=== PATIENT | male | born 1960 | race Caucasian/White ===

== ENCOUNTER → 2016-10-22 | Outpatient (CLI) | payer OTHER ==
[~2016-10-22] MED LIST: ASA325 MG PO; METFORMIN HCL1000 M1 PO; MIRALAX PACKET17 GM PO; OXY IR DPS5 MG PO; PRAVACHOL40 MG PO; SENOKOT S1 TAB PO; TYLENOL325 MG PO; ULTRAM DPS50 MG PO; VASOTEC DPS5 MG PO
== END | disposition home or self-care (01) ==
LOC: PTH.S 07:55
DX: Z01.812 Encounter for preprocedural laboratory examination (principal); Z79.2 Long term (current) use of antibiotics

== ENCOUNTER 2016-11-03 05:25 | Inpatient (IN) | payer OTHER ==
[~2016-11-03] VITALS: Ht 165.1 cm; Wt 96.4 kg
--- NOTE | 2016-11-04 16:20 | OR ---
ADMIT: 11/03/2016 RM/LOC: [address] [facility] MR#: [id number] 26[address] [facility] [address] [place], [place] [address] SRINIVASAN FELIZ [address] [place] [address] Operative/Delivery Room Report SEX: M AGE: 56 : 1960 SURGERY DATE: 11/03/2016 SURGEON: Hank Rubio MD TRANSPORTATION DISPATCHER: Keaton Garcia PA-C PREOPERATIVE DIAGNOSIS: Left hip degenerative joint disease. POSTOPERATIVE DIAGNOSIS: Left hip degenerative joint disease. PROCEDURES: 1. Left anterior total hip arthroplasty. 2. Intra-articular Exparel block. ANESTHESIA: Spinal. COMPLICATIONS: None. ESTIMATED BLOOD LOSS: 250 mL. COMPONENTS: 1. A 52 mm Gription pinnacle cup. 2. A hole eliminator. 3. A neutral 36 mm AltrX liner. 4. A 12 mm standard offset Corail stem. 5. A +5 x 36 mm ceramic head. DESCRIPTION OF PROCEDURE: The patient was taken to the operating room. The correct hip was identified and marked in the preop holding area. The preoperative leg lengths were documented. The patient received a spinal anesthetic. At that point, the patient had traction boots applied. The patient was placed on the [facility] operative table. A perfect fluoroscopic AP pelvis was obtained along with a perfect AP of the operative hip and printed for preoperative templating purposes. At that point, the left hip was prepped and draped in a standard fashion and an anterior approach was performed. An incision was made lateral and inferior to the anterior superior iliac spine extending distally. Dissection was carried through subcutaneous tissue down to the tensor fascia. The fibers of the tensor fascia were identified in oblique fashion. The tensor fascia was then opened up along its muscle fibers. An Allis clamp was placed on the anterior fascial border. The tensor muscle itself was then swept off with blunt dissection and retracted posteriorly. At that point, the rectus was elevated off the anterior hip capsule. The lateral circumflex vessels were identified and cauterized. A Cobra retractor was placed above the superior femoral neck to retract the tensor posteriorly. The rest of the rectus was elevated off the anterior hip capsule and a second retractor was placed around the medial femoral neck. An L-shaped capsulotomy was performed through the hip capsule down to the intertrochanteric line and extended along the intertrochanteric line to the level of the lesser trochanter. Tag stitches were placed in the medial and lateral border of the ADMIT: 11/03/2016 RM/LOC: 525 [facility] MR#: [id number] [address] [address] SRINIVASAN FELIZ [address] [place] [address] Operative/Delivery Room Report SEX: M AGE: 56 : 1960 hip capsule. We also released the superior hip capsule out of the trochanteric shoulder region. At that point, we placed our Cobra retractors in an intra- articular fashion for improved exposure to complete our capsular releases intra-articularly. A femoral neck cut was then made based on templating using the trochanteric shoulder as a bony landmark. We then externally rotated the hip 20 degrees for improved exposure and removed the femoral head from the acetabulum with no undue difficulty. Once the femoral head was removed, we again completed our capsular release around the inferior femoral neck to the level of lesser trochanter, released the superior capsule off the greater trochanteric shoulder in its entirety. We then placed slight traction on the femur in 20 degrees external rotation and placed a blunt-tip Cobra retractor over the anterior acetabular border. A second blunt Cobra was placed around the posterior acetabular border. All the remaining labrum was excised and an episiotomy performed to the inferior capsule to improve exposure. We cauterized the fovea and removed any remaining tissue in the depth of the acetabulum. We sequentially reamed the acetabulum under direct visualization up to a 51 mm size reamer. We elected to use a 52 size Gription acetabular component. We put the acetabular component on a curved senior microsoft net developer and placed it within the depths of the acetabulum. At that point we removed all retractors; brought in fluoroscopy; and again obtained a perfect AP of the pelvis followed by a perfect AP of the hip. Under fluoroscopic guidance, we impacted the acetabular component in approximately 45 degrees of inclination and 20 degrees of anteversion. We had an excellent press fit and no supplemental screws were required. Any peripheral osteophytes were circumferentially removed around the acetabular component. A hole eliminator was placed in the acetabular component and a neutral 36-mm AltrX liner was impacted within the acetabular component. A partial intra-articular block with Exparel was performed at this point in time. Once our acetabular preparation was completed, all the acetabular retractors were removed. We then exposed the femur by rotating it into neutral position and taking all traction off the femur. A femoral elevating hook was placed posterior to the trochanteric ridge. The foot was dropped down to 45 degrees and the leg maximally externally rotated no undue tension. We made sure our inferior capsular release was complete and placed a #1 retractor over the tip of the trochanter. Any remaining capsule was released off the tip of the trochanter and the piriformis tendon and a conjoined tendon were also released for exposure. At that point, you could feel the femur give, and we were able to elevate it up and out of the wound. The femur was externally rotated to approximately 120 degrees and the foot dropped to the floor as the leg was adducted. The trochanteric elevating hook was manually pulled in the anterior lateral direction as the elevating bar was raised to support it. At that point, we had excellent femoral exposure. A Emani retractor was placed over the tip of the trochanter and a femoral neck retractor around the medial calcar region to improve exposure. The proximal femur was opened with a box osteotome and a canal finder was used to identify the femoral canal. The proximal femur was sequentially broached up to a 12 mm Corail broach. We did overream the distal canal to be sure we did not have a distal femoral fit. At that point, we left the broach in the canal and calcar planed the neck. We then reduced the hip with a standard off-set femoral neck and a +5 x 36-mm ADMIT: 11/03/2016 RM/LOC: 525 [facility] MR#: [id number] [address] [facility] [address] [place], [place] [address] SRINIVASAN FELIZ [address] [place] [address] Operative/Delivery Room Report SEX: M AGE: 56 : 1960 head. All the retractors and femoral hook were removed. Using manual traction, we were able to reduce the hip into the acetabulum with no undue difficulty. A perfect fluoroscopic AP of the pelvis followed by a perfect AP of the hip was obtained and appropriate leg length and offset were confirmed. We replaced our femoral elevating hook posterior to the trochanter. A bone hook and manual traction were used to dislocate the hip, again externally rotating the femur in its entirety as the foot was dropped to the floor and leg adducted. We removed the trial components, replaced a [place] retractor, and a femoral neck retractor. The broach was removed and the appropriate real components opened. We then impacted a size standard offset Corail stem down the femoral canal with excellent press-fit. We impacted a +5 x 36 mm ceramic head on the trunnion. All retractors were removed, using manual traction the hip was reduced, and again was found to be stable. A final fluoroscopic AP pelvis and AP hip was obtained to confirm appropriate leg length, offset, and component positioning. We then irrigated out the wounds thoroughly and repaired the anterior capsular structures with #5 Ti-Cron. Our intra-articular Exparel block was completed including all soft tissues. The tensor fascia was repaired with a running and interrupted 0 Vicryl suture. We closed subQ with 2-0 Vicryl and ran a subcuticular Monocryl stitch. A Prineo hip wound dressing was applied and sterile dressings applied. The patient was taken off the HANA table, transferred to a standard OR bed, and taken to the recovery room in stable condition with no complications. Hank Rubio MD/ cecy JOB #: [id number] CC: Hank Rubio, Attending Physician Haider Stephens, Family Physician
[2016-11-05] MEDS ORDERED: VASOTEC DPS5 MG PO (18:42)
[2016-11-05] MEDS ORDERED: METFORMIN HCL1000 M1 PO (18:43)
[2016-11-05] MEDS ORDERED: PRAVACHOL40 MG PO (18:43)
[2016-11-05] MEDS ORDERED: ASA325 MG PO (18:43)
[2016-11-05] MEDS ORDERED: SENOKOT S1 TAB PO (18:44)
[2016-11-05] MEDS ORDERED: TYLENOL325 MG PO (18:44)
[2016-11-05] MEDS ORDERED: ULTRAM DPS50 MG PO (18:44)
[2016-11-05] MEDS ORDERED: MIRALAX PACKET17 GM PO (18:44)
[2016-11-05] MEDS ORDERED: OXY IR DPS5 MG PO (18:45)
--- NOTE | 2016-11-07 08:57 | HP ---
ADMIT: 11/03/2016 RM/LOC: [facility] MR#: [id number] [address] [facility] [address] [place], [place] [address] SRINIVASAN FELIZ [address] [place] [address] Pre-OP History and Physical SEX: M AGE: 56 : 1960 DATE OF SERVICE: CHIEF COMPLAINT: Hip pain. HISTORY OF PRESENT ILLNESS: The patient is a 56-year-old male with long- standing history of left hip pain. Left hip pain limits his activity. He has failed conservative care. He is now being admitted for left total hip arthroplasty. PAST MEDICAL HISTORY: Hypertension, and diabetes. PAST SURGICAL HISTORY: Carpal tunnel release. MEDICATIONS: 1. Metformin. 2. Enalapril. 3. Lipitor. ALLERGIES: NONE. SOCIAL HISTORY: Denies any tobacco or alcohol use. REVIEW OF SYSTEMS: Negative. PHYSICAL EXAMINATION: Ill-appearing male walks antalgic gait on the left lower extremity. Pain with any motion of the left hip. We can internally rotate to 0, externally rotate to 35, flex to 100. No back pain. Leg is neurovascularly intact. DIAGNOSTIC DATA: X-rays AP, lateral, show advanced left hip arthritis, subchondral cystic changes. IMPRESSION: 1. Left hip degenerative joint disease. 2. Diabetes. PLAN: Talked about different options. He has failed conservative care. Plan on doing a left anterior total hip arthroplasty. He is aware of the risks, benefits, and options and agreed to proceed. He has been seen and cleared from a medical standpoint. Hank Rubio MD/ cecy JOB #: [id number] CC: Hank Rubio, Attending Physician Haider Stephens, Family Physician
--- NOTE | 2016-11-27 07:45 | DS ---
ADMIT: 11/03/2016 RM/LOC: 525 [facility] MR#: [id number] [address] [facility] [address] [place], [place] [address] SRINIVASAN FELIZ [address] [place] [address] General Discharge Summary SEX: M AGE: 56 : 1960 ADMISSION DATE: 11/03/2016 DISCHARGE DATE: 11/04/2016 REASON FOR ADMISSION: Elective left total hip arthroplasty after failing conservative care. PAST SURGICAL HISTORY: Carpal tunnel release. ACTIVE MEDICAL PROBLEMS: Hypertension, hyperlipidemia, osteoarthritis of the hip, and diabetes mellitus. PREOPERATIVE DIAGNOSIS: Left hip degenerative joint disease. POSTOPERATIVE DIAGNOSIS: Left hip degenerative joint disease. PROCEDURE PERFORMED: Left anterior total hip arthroplasty. SURGEON: Hank Rubio MD LICENSED NURSING ASSISTANT: Keaton Garcia PA-C ANESTHESIA: Spinal. COMPLICATIONS: None. ESTIMATED BLOOD LOSS: 250 mL. HOSPITAL COURSE: The patient was admitted on 11/03/2016 for elective left total hip arthroplasty done by Dr. Rubio without any complications. The patient tolerated the procedure well. Postoperatively, the patient did well with pain control. He had some trouble with some low oxygen levels overnight, but remained stable the following morning. As expected, he did suffer from acute blood loss anemia. His hemoglobin dropped to 10.9 on 11/04/2016, but he remained hemodynamically stable and did not require blood transfusion. On postoperative day #1, he was doing well with physical therapy and was cleared by primary care to go home. He was safe, stable, and ready for discharge home with plans for outpatient physical therapy exercises at home. DISCHARGE MEDICATIONS: 1. Enalapril malleate 5 mg every day. 2. Metformin ER 1000 mg every day. 3. Pravastatin 40 mg 1 tablet daily. ADMIT: 11/03/2016 RM/LOC: 525 [facility] MR#: [id number] [address] [facility] [address] [place], [place] [address] [place] [address] General Discharge Summary SEX: M AGE: 56 : 1960 4. Aspirin 325 mg at bedtime for 35 days. 5. MiraLax 17 g daily as needed for 1 month. 6. Senokot 2 tablets daily as needed for 1 month. 7. Tylenol 325 mg 2 tablets every 6 hours as needed for pain. 8. Ultram 50 mg 1 to 2 tablets every 6 hours as needed for pain. 9. Oxycodone IR 5 mg 1 to 2 tablets every 4 hours as needed for breakthrough pain. DISCHARGE INSTRUCTIONS: The patient was discharged home with plans for outpatient physical therapy exercises at home per anterior total hip arthroplasty protocol. Follow up in the orthopedic office in 2 weeks for wound check, in 6 weeks with x-ray. Follow up with primary care as directed. ROSSY Mendoza / Hank Rubio MD / cecy JOB #: [id number] CC: Hank Rubio MD, Attending Physician Haider Stephens MD, Family Physician
== END 2016-11-04 16:10 | disposition home or self-care (01) | DRG 470 ==
LOC: WOR 05:25 → 5MS 05:25
PROVIDERS: ADMIT Orthopaedic Surgery
PROC: 0SRB04A Replacement of Left Hip Joint with Ceramic on Polyethylene Synthetic Substitute, Uncemented, Open Approach (ICD-10-PCS; principal; 2016-11-03)
DX: M16.0 Bilateral primary osteoarthritis of hip (principal); I10 Essential (primary) hypertension; D62 Acute posthemorrhagic anemia; E78.2 Mixed hyperlipidemia; E11.9 Type 2 diabetes mellitus without complications; Z79.84 Long term (current) use of oral hypoglycemic drugs; Z72.89 Other problems related to lifestyle; Z23 Encounter for immunization